=== PATIENT | female | born 1980 | race Two or more races ===

== ENCOUNTER → 2021-03-10 07:19 | Outpatient (CLI) | payer SELFPAY ==
[2021-03-10 07:45] LABS: Chloride 106 mmol/L (98-107); Sodium 139 mmol/L (136-145)
[2021-03-10 07:48] LABS: Alanine Aminotransferase 18 U/L (12-78); Albumin Level 4.1 g/dl (3.5-5.0); Albumin/Globulin Ratio 1.2 (1.1-1.8); Alkaline Phosphatase 73 U/L (38-126); Aspartate Amino Transferase 36 U/L (14-36); Bilirubin,Total 0.6 mg/dl (0.2-1.3); Blood Urea Nitrogen 8 mg/dl (7-17); Calcium 9.1 mg/dl (8.4-10.2); Carbon Dioxide 24 mmol/L (22.0-30.0); Chol/HDL Ratio 3.7 (1-3.5); Cholesterol 212 mg/dl (140-200); Estimated Glomerular Filt Rate 246 ml/min (>60); GFR (African American) 298 ML/MIN (>60); Globulin 3.3 g/dL (1.3-3.2); Glucose 144 mg/dl (74-100); HDL Cholesterol 58 mg/dl (40-60); Total Protein,Serum 7.4 g/dl (6.3-8.2); Triglycerides 214 mg/dl (30-150); VLDL Cholesterol 43 mg/dL (0-40)
[2021-03-10 07:59] LABS: Direct LDL Cholesterol 129.05 mg/dL (100-129); Hemoglobin A1C 6.8 % (4.0-6.0)
== END ==
PROVIDERS: Visit Provider Family Medicine
DX: R73.9 Hyperglycemia, unspecified (principal)
CPT/HCPCS: 36415; 80053; 80061; 83036

== ENCOUNTER → 2022-03-08 07:04 | Outpatient (REF) | payer SELFPAY ==
[2022-03-08 09:50] LABS: Hemoglobin A1C 7.3 % (4.0-6.0)
[2022-03-08 10:38] LABS: Chloride 105 mmol/L (98-107); Sodium 137 mmol/L (136-145)
[2022-03-08 10:39] LABS: Potassium 4.1 mmoL/L (3.5-5.1)
[2022-03-08 10:41] LABS: Alanine Aminotransferase 58 U/L (12-78); Albumin Level 3.9 g/dl (3.5-5.0); Albumin/Globulin Ratio 1.3 (1.1-1.8); Alkaline Phosphatase 107 U/L (38-126); Anion Gap 11.1 mEq/L (5-15); Aspartate Amino Transferase 60 U/L (14-36); Bilirubin,Total 0.3 mg/dl (0.2-1.3); Blood Urea Nitrogen 8 mg/dl (7-17); Carbon Dioxide 25 mmol/L (22.0-30.0); Cholesterol 211 mg/dl (140-200); Estimated Glomerular Filt Rate 245 ml/min (>60); GFR (African American) 297 ML/MIN (>60); Total Protein,Serum 6.9 g/dl (6.3-8.2); Triglycerides 250 mg/dl (30-150); VLDL Cholesterol 50 mg/dL (0-40)
[2022-03-08 10:42] LABS: Chol/HDL Ratio 3.7 (1-3.5); Glucose 152 mg/dl (74-100); HDL Cholesterol 57 mg/dl (40-60)
[2022-03-08 10:53] LABS: Direct LDL Cholesterol 118.03 mg/dL (100-129)
== END ==
LOC: LAB 07:04
PROVIDERS: PCP Family Medicine; Visit Provider Family Medicine
DX: R79.9 Abnormal finding of blood chemistry, unspecified (principal)
CPT/HCPCS: 36415; 80053; 80061; 83036

== ENCOUNTER → 2022-09-06 06:53 | Outpatient (CLI) | payer SELFPAY ==
[2022-09-06 08:48] LABS: Anion Gap 14.3 mEq/L (5-15); Blood Urea Nitrogen 6 mg/dl (7-17); Calcium 8.7 mg/dl (8.4-10.2); Carbon Dioxide 25 mmol/L (22.0-30.0); Chloride 104 mmol/L (98-107); Cholesterol 151 mg/dl (140-200); Estimated Glomerular Filt Rate 244 ml/min (>60); GFR (African American) 295 ML/MIN (>60); Glucose 151 mg/dl (74-100); HDL Cholesterol 50 mg/dl (40-60); Potassium 4.3 mmoL/L (3.5-5.1); Sodium 139 mmol/L (136-145); Triglycerides 197 mg/dl (30-150); VLDL Cholesterol 39 mg/dL (0-40)
[2022-09-06 10:50] LABS: Hemoglobin A1C 8.6 % (4.0-6.0)
== END ==
LOC: LAB 06:54
PROVIDERS: PCP Family Medicine; Visit Provider Family Medicine
DX: R73.09 Other abnormal glucose (principal)
CPT/HCPCS: 36415; 80048; 80061; 83036

== ENCOUNTER 2023-03-14 07:34 | Outpatient (CLI) | payer SELFPAY ==
[2023-03-14 08:23] LABS: Hemoglobin A1C 8.9 % (4.0-6.0)
== END 2023-03-14 21:02 | disposition home or self-care (01) ==
PROVIDERS: PCP Family Medicine; Visit Provider Family Medicine
DX: Z02.9 Encounter for administrative examinations, unspecified (principal)
CPT/HCPCS: 36415; 83036

== ENCOUNTER 2024-07-14 22:02 | Emergency (ER) | payer SELFPAY ==
[2024-07-14 22:07] VITALS: BP 142/73; PULSE 92; RESP 18; TEMP 36.7; O2SAT 100; BMI 36.1
[2024-07-14 22:27] LABS: Microscopic, Urine URINE MICROSCOPIC (MICROSCOPIC)
[2024-07-14 22:41] LABS: Bilirubin,Urine Negative (Negative); Blood, Urine 1+ (Negative); Glucose,Urine (UA) 3+ (Negative); Ketones,Urine 1+ (Negative); Leukocyte Esterase,Urine TRACE (Negative); Nitrate,Urine POSITIVE (Negative); PH,Urine 6.5 (5.0-8.5); Protein,Urine 2+ (Negative); Specific Gravity, Urine 1.015 (1.005-1.030); Urobilinogen,Urine >=8.0 EU/dl (0.2)
[2024-07-14 22:43] LABS: Albumin Level 4.6 g/dl (3.5-5.0); Chloride 101 mmol/L (98-107); Sodium 138 mmol/L (136-145)
[2024-07-14 22:44] LABS: Appearance,Urine Slightly Cloudy (Clear); Color,Urine Orange (Yellow)
[2024-07-14 22:44] LABS: Potassium 3.4 mmoL/L (3.5-5.1)
[2024-07-14 22:45] LABS: Bacteria,Urine 3+ /lpf; RBC,Urine 20-50 #/hpf (0-3); WBC,Urine 50-100 #/hpf (0-3)
[2024-07-14 22:46] LABS: Alanine Aminotransferase 42 U/L (12-78); Alkaline Phosphatase 101 U/L (38-126); Anion Gap 12.4 mEq/L (5-15); Aspartate Amino Transferase 38 U/L (14-36); Bilirubin,Total 0.5 mg/dl (0.2-1.3); Blood Urea Nitrogen 11 mg/dl (7-17); Calcium 10.3 mg/dl (8.4-10.2); Carbon Dioxide 28 mmol/L (22.0-30.0); Creatinine Clearance Estimated 148 mL/min (50-200); Estimated Glomerular Filt Rate 109 ml/min (>60); GFR (African American) 131 ML/MIN (>60); Glucose 141 mg/dl (74-100); Total Protein,Serum 8.8 g/dl (6.3-8.2)
[2024-07-14 22:47] LABS: Albumin/Globulin Ratio 1.1 (1.1-1.8); Globulin 4.2 g/dL (1.3-3.2)
[2024-07-14 22:50] LABS: Basophils # 0.1 K/mm3 (0-0.2); Basophils % 0.4 % (0.1-2.0); Eosinophils # 0.2 K/mm3 (0.0-0.4); Eosinophils % 1.6 % (0.1-12.0); Hematocrit 43.8 % (37.0-47.0); Hemoglobin 14.3 g/dL (12.2-16.2); Lymphocytes # 4.7 K/mm3 (0.7-4.5); Lymphocytes % 38.4 % (10-50); Mean Corpuscular HGB Conc 32.6 g/dL (31.8-35.4); Mean Corpuscular Hemoglobin 29.2 pg (27.0-31.2); Mean Corpuscular Volume 89.6 fl (81-99); Mean Platelet Volume 10.8 fl (7.4-10.4); Monocytes # 0.6 K/mm3 (0.1-1.0); Monocytes % 5.2 % (1.7-9.3); Neutrophils # 6.6 K/mm3 (1.8-7.8); Platelet Count 294 K/mm3 (142-424); Red Blood Count 4.89 M/mm3 (4.20-5.40); Red Cell Distribution Width 14.5 % (11.5-17.5); White Blood Count 12.2 K/mm3 (4.8-10.8)
--- NOTE | 2024-07-14 22:52 | ED_ITS ---
Discharge Plan Disposition Patient Disposition: Home, Self-Care Prescriptions Prescriptions: New cefdinir 300 mg capsule 300 mg PO BID 7 Days Qty: 14 0RF phenazopyridine [Pyridium] 200 mg tablet 200 mg PO TID PRN (Reason: pain) Qty: 10 0RF No Action metformin 500 mg tablet 500 mg PO DAILY Patient Comments: TAKE 1 TABLET BY MOUTH ONCE DAILY norethindrone ac-eth estradiol [Loestrin 04/28 ()] 1-20 mg-mcg tablet 1 tab PO DAILY Qty: 28 11RF metformin 500 mg tablet 1,000 mg PO BID 30 Days Qty: 120 3RF Referrals Follow up/Referrals: Dianne Morrison APRN [Primary Care Provider] - See instructions Activity Restrictions/Add. Instructions Additional Instructions/Restrictions: Call your family doctor to establish care for this visit to the emergency department and schedule follow-up within 48 hours to ensure improvement. If you have any worsening of your condition or any other concerning signs or symptoms, return to the emergency department or your primary care doctor for further evaluation. Clinical Impressions Clinical Impression: Urinary tract infection Instructions Patient Instructions: DI for Urinary Tract Infection (UTI), DI for Urinary Tract Infection in Children Print Language Print Language: Korean Discharge ED Provider: Carlos George General Adult HPI General Chief complaint: Urogenital-Female Stated complaint: ? UTI Time Seen by Provider: 07/14/24 22:19 Mode of Arrival: Ambulatory Source of Information: Patient Description of Symptoms (Recalled from ER Triage Doc. by RN): Pt presents for evaluation of burning with urination and darker color x 1 day. History of Present Illness HPI narrative: Please note that above description of symptoms, in this electronic medical record under categorization of recalled from ER triage doctor by RN are reflective of an initial nursing assessment, however, is not reflective of my full history and physical exam that was personally taken and clarified. Consequentially, this preceding description of symptoms, which may include the patient's categorized chief complaint in the EMR, do not reflect my personal clinical impression, and the ultimate description of history of present illness and patient stated complaints should be deferred to this section of the note. Unless stated otherwise or congruent with this section of the note, additional signs, symptoms, or incongruence should be interpreted as inaccurate with my clinical impression. Related Data Home Medications ?Medication ?Instructions ?Recorded ?Confirmed metformin 500 mg tablet 500 mg PO DAILY 08/15/22 06/04/24 Previous Rx's ?Medication ?Instructions ?Recorded norethindrone acetate 1 mg-ethinyl 1 tab PO DAILY #28 tabs 08/15/22 estradiol 20 mcg tablet (Loestrin) metformin 500 mg tablet 1,000 mg (2 x 500 mg) PO BID 30 04/29/24 days #120 tabs cefdinir 300 mg capsule 300 mg PO BID 7 days #14 caps 07/14/24 phenazopyridine 200 mg tablet 200 mg PO TID PRN pain 6 doses #10 07/14/24 (Pyridium) tabs Allergies Allergy/AdvReac Type Severity Reaction Status Date / Time No Known Allergies Allergy Verified 06/04/24 09:53 [facility] Disclaimer: The information contained in this section may have been updated after the patient was seen, as this information can be updated by other users. Family History Other Diabetes Social History Smoking Status: Never smoker alcohol intake: never current occupational status: other Travel in the last 8 weeks: None Have you lived/traveled outside [place] in past 30 days?: No Contact w/someone who lives/traveled outside [place] past 30 days?: No Exposure to someone with infectious disease in past 14 days?: No Do you have a fever (greater than 100.4 F or 38 C)?: No Have you tested positive for COVID-19: No Exposed to someone with COVID-19 in past 14 days?: No Do you have a sore throat?: No Do you have a cough?: No Do you have any weakness?: No Do you have any diarrhea?: No Are you experiencing any unusual bleeding?: No Do you have any muscle aches/pain?: No Do you have any abdominal pain?: No Are you experiencing loss of taste or smell?: No Other Medical History Have you received the Pneumonia Vaccine: No ROS Obtained: Yes All systems reviewed & no additional complaints except as documented Physical Exam General General appearance: alert Head Head exam: atraumatic and normocephalic Eye Eye exam: Present normal appearance, PERRL and EOMI Neck Neck exam: Present normal inspection, full ROM and trachea midline Respiratory Respiratory exam: Absent respiratory distress, wheezes, stridor, accessory muscle use or prolonged expiratory phase Cardiovascular Cardiovascular exam: Present other (Pulses equal symmetric in upper and lower extremities) Abdominal Exam Abdominal exam: Present soft; Absent distention, tenderness or pulsatile mass Extremities Exam Extremities exam: Absent edema Neurological Exam Neurological exam: Present alert, oriented X3 and CN II-XII intact; Absent motor sensory deficit Skin Skin exam: Present warm and dry; Absent diaphoresis or erythema Medical Decision Making Medical Records Medical records reviewed: Yes I reviewed the patient's medical records. Screening: Per USPSTF and CDC recommendations, given the prevalence of disease in our region, it is our hospital?s policy to screen for HIV and viral Hepatitis for all patients aged 18 and over and those with ongoing risk factors. Kristian Inquiry Pt receiving controlled substance: No Kristian was queried for this patient: No Vital Signs: 07/14/24 22:07 Temperature 98.1 F Temperature Source Oral Pulse Rate [Right] 92 H Respiratory Rate 18 Blood Pressure [Right Arm] 142/73 H Blood Pressure Mean [Right Arm] 96 Blood Pressure Source [Right Arm] Automatic Cuff Blood Pressure Position [Right Arm] Sitting 02 Sat by Pulse Oximetry 100 Oxygen Delivery Method Room Air Lab Data Lab Results 07/14/24 22:16: Urine Color [place], Urine Appearance Slightly cloudy, Urine pH 6.5, Ur Specific [place] 1.015, Urine Protein 2+ A, Urine Glucose (UA) 3+, Urine Ketones 1+, Urine Blood 1+ A, Urine Nitrate Positive A, Urine Bilirubin Negative, Urine Urobilinogen >=8.0, Ur Leukocyte Esterase Trace, Urine RBC 20- 50, Urine WBC 50-100, Ur Squamous Epith Cells 3-5, Urine Bacteria 3+ 07/14/24 22:22: Sodium 138, Potassium 3.4 L, Chloride 101, Carbon Dioxide 28, Anion Gap 12.4, BUN 11, Creatinine 0.60, Estimated Creat Clear 148, Estimated GFR 109, Est GFR ( Amer) 131, Glucose 141 H, Calcium 10.3 H, Total Bilirubin 0.5, AST 38 H, ALT 42, Alkaline Phosphatase 101, Total Protein 8.8 H, Albumin 4.6, Globulin 4.2 H, Albumin/Globulin Ratio 1.1 07/14/24 22:22 Orders (Tests/Meds): ED MEDICATIONS Discontinued Medications Generic Name Dose Route Start Last Admin Trade Name Freq PRN Reason Stop Dose Admin Cefdinir 300 mg 07/14/24 22:48 Cefdinir 300mg Capsule PO 07/14/24 22:49 ONCE ONE Phenazopyridine HCl 200 mg 07/14/24 22:48 Phenazopyridine 200mg Tablet PO 07/14/24 22:49 ONCE ONE ORDERS Category Date Time Status CBC w/Auto Diff [Complete Blood Count Auto Diff] Stat Lab 07/14/24 22:22 Received CMP [Comprehensive Metabolic Panel] Stat Lab 07/14/24 22:22 Completed UA [Urinalysis and Microscopic] Stat Lab 07/14/24 22:16 Completed Urine Culture Stat Micro 07/14/24 22:16 Received Medical Decision Narrative: 44-year-old female history of hypertension, hyperlipidemia, diabetes presenting with urinary tract infection symptoms. States that she has been having dysuria and hematuria for the last couple of days. History obtained primarily with patient and patient's son. Patient states she is having some pain in her back, no fevers or chills or diarrhea or vomiting. Never had a urinary tract infection in the past. On arrival, patient very clinically well. No tenderness elicited on percussion of the flanks or abdominal tenderness with deep palpation. Differential includes urinary tract infection, among others. Urinalysis and basic labs were obtained. Has not an actionable hematologic workup, but does have findings significant for urinary tract infection with blood, protein, nitrates, bacteria on leukocytes. Patient given first dose of Pyridium as well as cefdinir. Questions were answered. Because patient at baseline without signs or symptoms of clinical decompensation, deemed appropriate for discharge. Results were relayed to patient who voiced understanding and were agreeable to outpatient management and follow up. I discussed my clinical impression with patient and answered all questions. At this time, the evidence for any other entities in the differential is insufficient to warrant any further testing or ED observation. This was explained as well. Advisory was given that persistent or worsening symptoms require further evaluation. I confirmed the understanding of this discussion. Pool Servicer disclaimer Much of this encounter note is an electronic financial recording clerk spoken language to printed text. Electronic financial recording clerk of the spoken language may permit errors. Although I have reviewed the note, some errors may still exist. Critical Care Critical Care Time Critical Care Time: No
[2024-07-14] MEDS: PHENAZOPYRIDINE 200MG TABLET 200 MG PO (22:53)
[2024-07-14] MEDS: CEFDINIR 300MG CAPSULE 300 MG PO (22:53)
[2024-07-14 23:14] VITALS: BP 146/78; PULSE 86; RESP 16; TEMP 36.8; O2SAT 99
--- NOTE | 2024-07-17 19:58 | PC.NURSE ---
spoke with patient about urine culture results, informed patient to continue taking the antibiotic that was called itn.
--- NOTE | 2024-07-17 20:00 | PC.NURSE ---
this RN contacted the patient to discuss urine culture result and informed patient to continue taking antibiotic as prescribed.
== END 2024-07-14 23:23 | disposition home or self-care (01) ==
PROVIDERS: Emergency Provider Emergency Medicine; PCP Nurse Practitioner Family
DX: N39.0 Urinary tract infection, site not specified (principal); R30.9 Painful micturition, unspecified; R30.0 Dysuria; R31.9 Hematuria, unspecified; M54.9 Dorsalgia, unspecified; I10 Essential (primary) hypertension; E78.5 Hyperlipidemia, unspecified; E11.9 Type 2 diabetes mellitus without complications
CPT/HCPCS: 80053; 81001; 85025; 87086; 87088; 87186; 99283

== ENCOUNTER 2025-02-28 22:28 | Emergency (ER) | payer SELFPAY ==
--- OUTSIDE RECORDS SUMMARY | 2025-02-20 05:45 | XMS_ITS | Continuity of Care Document ---
Author Organization [facility] Address [address] [place] [address] Phone Care Team Providers Care Horse Racer Name Role Phone Prince MSN, GYROSCOPIC INSTRUMENT TESTER, Dianne Unavailable Unavai lable Allergies, Adverse Reactions, Alerts Substance Reaction Status Criticality No Known Allergies Active No Inform ation Medications Medication Instructions Dosage Effective Dates (start - stop) Status Comments JARDIANCE 25MG TABLET TAKE ONE (1) TABLE T BY ORAL ROUTE EVERY DAY IN THE MORNING - Active ROSUVASTATIN CALCIUM 20MG TABLET TAKE ONE (1) TABLET BY ORAL ROUTE EVERY DAY - Active METFORMIN HYDROCHLORIDE 500MG TABLET TAKE TWO (2) TABLET BY ORAL ROUTE TWO (2) TIMES EVERY DAY WITH MORNING AND EVENING MEALS - Active VALSARTAN 80MG TABLET TAKE ONE (1) TABLE T BY ORAL ROUTE EVERY DAY - Active VITAMIN D [id number] CAPSULE TAKE ONE (1) CAPSULE BY ORAL ROUTE EVERY WEEK FOR 12 WEEKS - Active True Metrix Glucose Test Strip To use to check BS three times daily - Active lancets 33 gauge to use to check bs three times daily - Active Alcohol Prep Pads To use to check BS three times daily - Active True Metrix Glucose Meter To use to check BS tid - Active Procedures Procedure Date IMMUNIZATION ADMIN FLU VACCINE NO PRESERV 3 & > Advance Directives Directive Yes / No Effective Date File Name No Information Encounters Encounter Description Practice Location Reason(s) For Visit Diagnoses Date Provider [facility], [address], [place], [facility], tel:[phone] [facility] [place] Flu Vaccine (chief complaint) No Information 5 Morrison Dianne. [address], [place], [id number] , . tel: [phone] [facility], [address] [place] [address], [facility], tel:[phone] [facility] [place] f/u on labs (chief complaint) Body mass index [BMI] 33.0-33.9, adultEssential (primary) hypertensionHyperlipidem ia, unspecifiedType 2 diabetes mellitus without complications 5 Morrison Dianne. [address], [place], [id number] , . tel: [phone] [place] [address], [address] [place] [address], [facility], tel:[phone] [facility] [place] Fasting Labs (chief complaint) Essential (primary) hypertension 5 Morrison Dianne. [address], [place], [id number] , . tel: [phone] [facility], [address] [place] [address], [facility], tel:[phone] [facility] [place] No Information 5 Morrison Dianne. [address], [place], [id number] , [place]. tel: [phone] [facility], [address] [place] [address], [facility], tel:[phone] [facility] [place] Follow up on lab results (chief complaint) Body mass index [BMI] 32.0-32.9, adultEssential (primary) hypertensionHyperlipidem ia, unspecifiedObesityType 2 diabetes mellitus without complications 5 Morrison Dianne. [address], [place], [id number] , . tel:[phone] [facility], [address] [place] [address], [facility], tel:[phone] [facility] [place] lab collection (chief complaint) Essential (primary) hypertension 5 Morrison Dianne. [address], [place], [id number] , . tel: [phone] [facility], [address] [place] [address], [facility], tel:[phone] [facility] [place] No Information 5 Morrison Dianne. [address], [place], [address] [place] [address] , . tel: [phone] [address], [facility], tel:[phone] [facility] [place] f/u lab results (chief complaint) Body mass index [BMI] 35.0-35.9, adultType 2 diabetes mellitus without complicationsEssential (primary) hypertensionHyperlipidem ia, unspecifiedObesityAbnorm al results of liver function studiesHypercalciuria 5 Morrison Dianne. [address] [place] [address], [id number] , . tel: [phone] [address], [facility], tel:[phone] [facility] [place] Depression screening (chief complaint)P TREMAYNE (chief complaint)n ew to establish (chief complaint) Extreme povertyLess than a high school diplomaUnemployment, unspecifiedInsufficient health insurance coverageEncounter for screening for depressionEncounter for screening for diseases of the blood and blood-forming organs and certain disorders involving the immune mechanismBody mass index [BMI] 35.0-35.9, adultType 2 diabetes mellitus without complicationsGERD disease w/ esophagitis, w/o bleeding Prince Dean. [address] [place], [place], [id number] , . tel: [phone] Family History Family Member Type Diagnosis Age At Onset Son Problem Asthma Son Problem Alive and well Sister Problem Alive and well Maternal grandmother Problem Diabetes mellitus Father Problem Hypertension Brother Problem Diabetes mellitus Paternal grandfather Problem (finding) Sister Problem Alive and well Brother Problem Alive and well Brother Problem ME Sister Problem Alive and well Maternal grandfather Problem (finding) Father Problem Alive and well Daughter Problem 15 days after Maternal grandfather Problem Hypertension Mother Problem Alive and well Father Problem Diabetes mellitus Brother Problem Alive and well Paternal grandmother Problem (finding) Immunizations Vaccine Date Status Comments Influenza virus vaccine, trivalent (IIV3), split virus, preservative free, 0.5 mL dosage, for intramuscular use administered Source: [facility] Immunization Record Influenza virus vaccine, trivalent (IIV3), split virus, preservative free, 0.5 mL dosage, for intramuscular use administered Source: [facility] Immunization Record COVID-19 mRNA (PFR) administered Source: Other Registry COVID-19 mRNA (PFR) administered Source: Other Registry COVID-19 mRNA (PFR) administered Source: Other Registry Tdap, Adsorbed administered Source: Other Registry Payers Payer name Insurance type Covered alliance party ID Authormariona tigab(s) Hc- Covered Under [employer] CI [id number] Hc- Covered Under [employer] CI [id number] Hc- Covered Under [employer] CI [id number] Social History Type Description Quantity Date Captured Comments Alcohol Use Details Unknown Caffeine Use Details Unknown Tobacco Use Status No Information Smoking Status No Information Sex Female Sexual Orientation Straight or heterosexual Jun Gender Identity Female Chief Complaint And Reason For Visit From encounter dated 02/20/2025 10:45'. Flu Vaccine (chief complaint). Description: Pt is here today to receive the flu vaccine afluria, 0.5 mL, Lot# [id number], Exp: 10.06.25. Administered into left deltoid, pt tolerated well, band aid applied. No reaction noted. Plan Of Treatment Date Type Action Status Goal Unhealthy drug use screening due Goal Hepatitis C Screening due Goal Generalized Anxi ety Disorder - 7 (ARABELLA-7). Due on due Goal Follow up Plan f or abnormal BMI (Less than 18.5, greater than 25). Due on due Goal PAP. Due on due Goal Tobacco screening. Due on due Goal CBC. Due on due Goal HIV screen due Goal Vitamin D. Due on due Goal Obtain Height, Weight, and B ME. Due on due Goal HPV. Due on due Goal Drug Abuse Scree ty Test (DAST-10). Due on due Goal HPV testing. Due on due Goal Diabetes screening. Due on due Goal CMP. Due on due Goal Influenza vaccine. Due on due Goal Depression screening. Due on due Goal Pneumococcal vaccine. Due on due Goal Obtain blood Pressure. Due o n due Goal Urinalysis. Due on due Goal ECG. Due on due Goal Hematocrit/Hemoglobin. Due o n due Goal Hemoglobin (Pree jimena/HR 9 months). Due on due Goal Lipid 9-11 y due Goal Lipid 17-20 y due Goal Dilated eye exam. Due on Jan due Goal GFR. Due on due Goal ASCVD 10 year risk. Due on O due Goal Hep B (). Due on due Goal Lipid panel. Due on due Goal Hemoglobin A1C. Due on due Goal Urine microalbumin. Due on due Goal Taking Statin Medication. Du e on due Goal Foot exam. Due on due Goal Dental exam. Due on due Goal TSH. Due on due Goal Pap/HPV testing. Due on due Goal Vitamin B12. Due on due Goal Tobacco Use Screening. Due o n due Goal Lifestyle education regardin g diet completed Goal Urine microalbumin. Due on due Goal Hemoglobin A1C. Due on due Goal Pneumococcal vaccine. Due on due Goal Hep B (). Due on due Goal Taking Statin Medication. Du e on due Goal GFR. Due on due Goal ASCVD 10 year risk. Due on due Goal Dilated eye exam. Due on Dec due Goal Depression screening. Due on due Goal Foot exam. Due on due Goal Obtain blood Pressure. Due o n due Goal Lipid panel. Due on due Goal Dental exam. Due on due Goal Diabetes screening. Due on due Goal Tobacco screening. Due on due Goal Vitamin B12. Due on due Goal TSH. Due on due Goal Obtain Height, Weight, and B ME. Due on due Goal HPV. Due on due Goal Generalized Anxi ety Disorder - 7 (ARABELLA-7). Due on due Goal PAP. Due on due Goal Tobacco Use Screening. Due o n due Goal Follow up Plan f or abnormal BMI (Less than 18.5, greater than 25). Due on due Goal Pap/HPV testing. Due on due Goal HPV testing. Due on due Goal Drug Abuse Scree ty Test (DAST-10). Due on due Goal Hepatitis C Screening due Goal Vitamin D. Due on due Goal CMP. Due on due Goal CBC. Due on due Goal HIV screen due Goal Unhealthy drug use screening due Goal Influenza vaccine. Due on due Goal ECG. Due on due Goal Urinalysis. Due on due Goal Hematocrit/Hemoglobin. Due o n due Goal Hemoglobin (Pree jimena/HR 9 months). Due on due Goal Lipid panel. Due on 026 due Goal Hemoglobin A1C. Due on due Goal Dilated eye exam. Due on Oct due Goal Hep B (). Due on due Goal Foot exam. Due on due Goal Dental exam. Due on due Goal GFR. Due on due Goal Urine microalbumin. Due on due Goal Taking Statin Medication. Du e on due Goal ASCVD 10 year risk. Due on due Goal PAP. Due on due Goal Tobacco Use Screening. Due o n due Goal Pap/HPV testing. Due on due Goal TSH. Due on due Goal Vitamin D. Due on due Goal Diabetes screening. Due on due Goal Tobacco screening. Due on due Goal Generalized Anxi ety Disorder - 7 (ARABELLA-7). Due on due Goal Hepatitis C Screening due Goal Drug Abuse Scree ty Test (DAST-10). Due on due Goal Unhealthy drug use screening due Goal HIV screen due Goal CBC. Due on due Goal Obtain Height, Weight, and B ME. Due on due Goal Vitamin B12. Due on due Goal Follow up Plan f or abnormal BMI (Less than 18.5, greater than 25). Due on due Goal HPV testing. Due on due Goal HPV. Due on due Goal CMP. Due on due Goal Pneumococcal vaccine. Due on due Goal Influenza vaccine. Due on due Goal Depression screening. Due on due Goal Obtain blood Pressure. Due o n due Goal Urinalysis. Due on due Goal ECG. Due on due Goal Lifestyle education regardin g diet completed Goal Hemoglobin A1C. Due on due Goal Lipid panel. Due on due Goal Dental exam. Due on due Goal Hep B (1st). Due on due Goal Taking Statin Medication. Du e on due Goal GFR. Due on due Goal Foot exam. Due on due Goal Dilated eye exam. Due on Sep due Goal Urine microalbumin. Due on due Goal ASCVD 10 year risk. Due on due Goal Unhealthy drug use screening due Goal Obtain Height, Weight, and B ME. Due on due Goal Pap/HPV testing. Due on due Goal HIV screen due Goal Tobacco Use Cess ation Counseling. Due on due Goal Diabetes screening. Due on due Goal Vitamin B12. Due on 026 due Goal HPV testing. Due on 029 due Goal Hepatitis C Screening due Goal PAP. Due on due Goal CMP. Due on due Goal CBC. Due on due Goal Tobacco Use Screening. Due o n due Goal Generalized Anxi ety Disorder - 7 (ARABELLA-7). Due on due Goal HPV. Due on due Goal TSH. Due on due Goal Follow up Plan f or abnormal BMI (Less than 18.5, greater than 25). Due on due Goal Drug Abuse Scree ty Test (DAST-10). Due on due Goal Tobacco screening. Due on due Goal Vitamin D. Due on due Goal Depression screening. Due on due Goal Pneumococcal vaccine. Due on due Goal Influenza vaccine. Due on due Goal ECG. Due on due Goal Urinalysis. Due on 25 due Goal Obtain blood Pressure. Due o n due Goal Tobacco screening. Due on due Goal HPV testing. Due on 029 due Goal HIV screen due Goal TSH. Due on due Goal Vitamin B12. Due on 026 due Goal CMP. Due on due Goal Obtain Height, Weight, and B ME. Due on due Goal Pap/HPV testing. Due on due Goal PAP. Due on due Goal CBC. Due on due Goal Vitamin D. Due on due Goal Tobacco Use Screening. Due o n due Goal Hepatitis C Screening due Goal Generalized Anxi ety Disorder - 7 (ARABELLA-7). Due on due Goal HPV. Due on due Goal Drug Abuse Scree ty Test (DAST-10). Due on due Goal Diabetes screening. Due on due Goal Follow up Plan f or abnormal BMI (Less than 18.5, greater than 25). Due on due Goal Tobacco Use Cess ation Counseling. Due on due Goal Unhealthy drug use screening due Goal Taking Statin Medication. Du e on due Goal Dilated eye exam. Due on Sep due Goal Pneumococcal vaccine. Due on due Goal Hemoglobin A1C. Due on due Goal Depression screening. Due on due Goal Urine microalbumin. Due on due Goal ASCVD 10 year risk. Due on due Goal Lipid panel. Due on due Goal Urinalysis. Due on due Goal GFR. Due on due Goal Foot exam. Due on due Goal Dental exam. Due on due Goal Hep B (). Due on due Goal Influenza vaccine. Due on due Goal ECG. Due on due Goal Obtain blood Pressure. Due o n due Goal ASCVD 10 year risk. Due on due Goal Urine microalbumin. Due on due Goal GFR. Due on due Goal Dilated eye exam. Due on Jun due Goal Dental exam. Due on due Goal Lipid panel. Due on due Goal Unhealthy drug use screening due Goal HPV. Due on due Goal Tobacco Use Cess ation Counseling. Due on due Goal Drug Abuse Scree ty Test (DAST-10). Due on due Goal Tobacco Use Screening. Due o n due Goal Obtain Height, Weight, and B ME. Due on due Goal Hepatitis C Screening due Goal HIV screen due Goal CBC. Due on due Goal PAP. Due on due Goal Tobacco screening. Due on due Goal CMP. Due on due Goal Vitamin B12. Due on 026 due Goal HPV testing. Due on 029 due Goal Generalized Anxi ety Disorder - 7 (ARABELLA-7). Due on due Goal TSH. Due on due Goal Vitamin D. Due on due Goal Pap/HPV testing. Due on due Goal Hemoglobin A1C. Due on due Goal Taking Statin Medication. Du e on due Goal Hep B (). Due on due Goal Follow up Plan f or abnormal BMI (Less than 18.5, greater than 25). Due on due Goal Diabetes screening. Due on due Goal Pneumococcal vaccine. Due on due Goal Depression screening. Due on due Goal Influenza vaccine. Due on due Goal Foot exam. Due on due Goal Urinalysis. Due on due Goal ECG. Due on due Goal Obtain blood Pressure. Due o n due Goal Lifestyle education regardin g diet completed Goal Tobacco screening. Due on due Goal HIV screen due Goal Drug Abuse Scree ty Test (DAST-10). Due on due Goal PAP. Due on due Goal Pneumococcal vaccine. Due on due Goal HPV. Due on due Goal Obtain Height, Weight, and B ME. Due on due Goal Vitamin D. Due on due Goal Lipid panel. Due on due Goal Unhealthy drug use screening due Goal Tobacco Use Screening. Due o n due Goal Vitamin B12. Due on due Goal Diabetes screening. Due on due Goal Generalized Anxi ety Disorder - 7 (ARABELLA-7). Due on due Goal CMP. Due on due Goal CBC. Due on due Goal Follow up Plan f or abnormal BMI (Less than 18.5, greater than 25). Due on due Goal HPV testing. Due on due Goal TSH. Due on due Goal Hepatitis C Screening due Goal Pap/HPV testing. Due on due Goal Influenza vaccine. Due on due Goal Depression screening. Due on due Goal ASCVD 10 year risk. Due on due Goal Foot exam. Due on due Goal Taking Statin Medication. Du e on due Goal Urine microalbumin. Due on M due Goal Hemoglobin A1C. Due on due Goal Dental exam. Due on due Goal GFR. Due on due Goal Hep B (). Due on due Goal Dilated eye exam. Due on Jun due Goal Lifestyle education lon g diet completed Appointment Mini Sahu-fasting L abs BOOKED History Of Present Illness Encounter Date Complaint History Of Prese nt Illness Flu Vaccine Pt is here today to receive the flu vaccine afluria, 0.5 mL, Lot# [id number], Exp: 10.06.25. Administered into left deltoid, pt tolerated well, band aid applied. No reaction noted. f/u on labs Mini is here today for f/u on recent labs:A1c improved- 7.9compliant with medication.DM eye exam 10/22/24DM foot exam 06.27.24Micro 10.02.24HLD:LDL 36Trigs 129at goal- continue rosuvastatinall other labs wnloverall improvedno complaints Fasting Labs Pt is here today to have fasting labs collected. 1x attempt in right ac with butterfly needle. Successfully collected 3 tubes, pt tolerated well, gauze and coban applied, pt instructed to remove in 5-10 minutes, pt voiced understanding. Pt is scheduled to rtc in 2 weeks to follow up on lab results. Follow up on lab results Mini is here today to follow up on recent lab results.overall labs improvedDM: a1c 8.2not checking her BScompliant w/ medicationEye appt made for the for dm eye examMicro completed 07/01DM foot exam currentoverall she reports she is feeling much better.HLD: improvedLDL 35, trigs 130B12 and vit d wnlvit d improved 38.9- continue weekly supplement then switch to D3 2000 IU daily (dec)no other complaints at this time lab collection Mini is here today for lab collection.Micro albumin also collected. f/u lab results Marilou is a 44 yo female here today for f/u on recent labs:DM: A1C 11.1, Glucose 177HLD:Total 209, LDL 104, Trigs 283Abnml liver enzymes:AST 119, ALT 88asymptomatic at this time. Will reassess in 3 months. Diet modifications discussed to have healthier lifestyle/diet. Ca 10.7- recheck in 3 months Depression screening The questio ns to the depression screening was asked by Dianne Morrison APRN. I was home health care case manager that enter the answers into the chart-PH, CAL MCCALL was comp leted by Dianne Morrisno APRN, I was the home health care case manager that entered the answers into the chart-PH, new to establish Mini is here today to establish care. She is a 43 to female here today sent from Dr. Bowers (another pcp here in town) to manage her diabetes. It was too expensive to continue care there. she has a hx of Type 2 DM, but otherwise to her report, healthy.She currently is on 500 mg of Metformin bid.She had [facility]- Dr. Burdick's officeNo MammoNo colonoscopyFlu shot given todayCovid booster declinedNon-fasting labs collected todayRTC 1-2 weeks f/u lab results, DM foot exam at that time. Instructions Date Instruction Additional Infor gaston Patient educated on the importance of improved glycemic control. Counseled on diet, exercise and other lifestyle modifications. Monitor blood glucose and keep a log as instructed by checking fasting glucose in the AM and non fasting before bedtime with any additional checks as instructed. Patient instructed to bring glucose log to all scheduled appointments. Instructed on the importance of taking all medications as prescribed. Patient aware of the importance of diabetic eye exams, dental check ups, foot exams and diabetic foot care. Patient verbalized understanding. Related to Type 2 diabetes mellitus without complications Low fat, low cholest filomena diet. Avoid fatty, fried, and greasy foods. Physical activity as tolerated. Counseled on risks of associated comorbidities, such as heart disease and stroke. Encouraged avoidance of tobacco products. Related to Hyperlipidemia, unspecified Patient currently do ing well. BP in goal range. No medication changes. Patient instructed to follow a low salt diet, continuing taking blood pressure medications as prescribed. Keep routine follow up with clinic. Related to Essential (primary) hypertension Giving encouragement to exercise Related to Body mass index [BMI] 33.0-33.9, adult Lifestyle education regarding di et Related to Body mass index [BMI] 33.0-33.9, adult Patient educated on the importance of improved glycemic control. Counseled on diet, exercise and other lifestyle modifications. Monitor blood glucose and keep a log as instructed by checking fasting glucose in the AM and non fasting before bedtime with any additional checks as instructed. Patient instructed to bring glucose log to all scheduled appointments. Instructed on the importance of taking all medications as prescribed. Patient aware of the importance of diabetic eye exams, dental check ups, foot exams and diabetic foot care. Patient verbalized understanding. Related to Type 2 diabetes mellitus without complications Low fat, low cholest filomena diet. Avoid fatty, fried, and greasy foods. Physical activity as tolerated. Counseled on risks of associated comorbidities, such as heart disease and stroke. Encouraged avoidance of tobacco products. Related to Hyperlipidemia, unspecified Dietary Instructions for a healthy weight: BMI should be between the range of 18.5-24.9 for an adult; and Caloric intake should be around 3994-8698 for a female, and 8075-8032 for an adult male. Fiber intake should be about 14 grams for 1000 calories per day. That is about 20-30 grams daily. Good sources of fiber are oatmeal, fortified grains, and green leafy vegetables, apples. You can also use Carbohydrate counting to maintain a healthy weight. One serving is equal to 15 grams (1 piece of bread, small fruit, or 1 cup of milk). Men should have 45-75, Women about 30-65 per meal, and snacks are recommend to be 13-30 grams each. [employer] is a good source for meal planning and dietary education. You may also refer to the [place] [employer] website for further low sodium, health heart diet information. Mediterainian diet would be a suitable diet for your current health conditions. Related to Obesity Patient currently do ing well. BP in goal range. No medication changes. Patient instructed to follow a low salt diet, continuing taking blood pressure medications as prescribed. Keep routine follow up with clinic. Related to Essential (primary) hypertension Giving encouragement to exercise Related to Body mass index [BMI] 32.0-32.9, adult Lifestyle education regarding di et Related to Body mass index [BMI] 32.0-32.9, adult Low fat dietAvoid ty lenol useDo not consume ETOH Related to Abnormal results of liver function studies Dietary Instructions for a healthy weight: BMI should be between the range of 18.5-24.9 for an adult; and Caloric intake should be around 2908-3240 for a female, and 0131-8807 for an adult male. Fiber intake should be about 14 grams for 1000 calories per day. That is about 20-30 grams daily. Good sources of fiber are oatmeal, fortified grains, and green leafy vegetables, apples. You can also use Carbohydrate counting to maintain a healthy weight. One serving is equal to 15 grams (1 piece of bread, small fruit, or 1 cup of milk). Men should have 45-75, Women about 30-65 per meal, and snacks are recommend to be 13-30 grams each. [employer] is a good source for meal planning and dietary education. You may also refer to the [place] [employer] website for further low sodium, health heart diet information. Mediter[place]ian diet would be a suitable diet for your current health conditions. Physical activity as tolerated. Try to engage in some form of moderate physical activity for 30 minutes most days of the week. May modify activity as needed to reduce discomfort. Try to achieve/maintain a healthy body weight to reduce strain on musculoskeletal system. Verbalizes an understanding. Related to Obesity Low fat, low cholest filomena diet. Avoid fatty, fried, and greasy foods. Physical activity as tolerated. Counseled on risks of associated comorbidities, such as heart disease and stroke. Encouraged avoidance of tobacco products. Related to Hyperlipidemia, unspecified Patient instructed o f the importance of taking medications as prescribed, following a low salt diet as well as getting physical activity as tolerated. Patient advised to keep BP log daily checking each morning and before bed. Patient to call the clinic if systolic blood pressure is greater than 150 and/or diastolic blood pressure is staying greater than 90. Related to Essential (primary) hypertension Patient educated on the importance of improved glycemic control. Counseled on diet, exercise and other lifestyle modifications. Monitor blood glucose and keep a log as instructed by checking fasting glucose in the AM and non fasting before bedtime with any additional checks as instructed. Patient instructed to bring glucose log to all scheduled appointments. Instructed on the importance of taking all medications as prescribed. Patient aware of the importance of diabetic eye exams, dental check ups, foot exams and diabetic foot care. Patient verbalized understanding. Related to Type 2 diabetes mellitus without complications Giving encouragement to exercise Related to Body mass index [BMI] 35.0-35.9, adult Lifestyle education regarding di et Related to Body mass index [BMI] 35.0-35.9, adult Counseled patients o n medications for reflux. Discussed lifestyle modifications including but not limited to elevating the head of the bed, limiting fatty, greasy, spicy food intake. Avoid heavy meals and caffeine intake within 2 hours of bedtime. If applicable, reduce/discontinue tobacco use and/or alcohol use, as both can make reflux symptoms worse. Related to GERD disease w/ esophagitis, w/o bleeding Patient educated on the importance of improved glycemic control. Counseled on diet, exercise and other lifestyle modifications. Monitor blood glucose and keep a log as instructed by checking fasting glucose in the AM and non fasting before bedtime with any additional checks as instructed. Patient instructed to bring glucose log to all scheduled appointments. Instructed on the importance of taking all medications as prescribed. Patient aware of the importance of diabetic eye exams, dental check ups, foot exams and diabetic foot care. Patient verbalized understanding. Related to Type 2 diabetes mellitus without complications Giving encouragement to exercise Related to Body mass index [BMI] 35.0-35.9, adult Lifestyle education regarding di et Related to Body mass index [BMI] 35.0-35.9, adult Assessments Type Assessment Date No Information
[2025-02-28 22:52] VITALS: BP 155/88; PULSE 96; RESP 20; TEMP 36.6; O2SAT 99; BMI 29.9
--- NOTE | 2025-02-28 22:53 | ED_ITS ---
Discharge Plan Disposition Patient Disposition: Home, Self-Care Condition: Good Prescriptions Prescriptions: New amoxicillin-pot clavulanate 875-125 mg tablet 1 tab PO Q12H 7 Days Qty: 14 0RF No Action metformin 500 mg tablet 500 mg PO DAILY Patient Comments: TAKE 1 TABLET BY MOUTH ONCE DAILY norethindrone ac-eth estradiol [Loestrin 04/28 (21)] 1-20 mg-mcg tablet 1 tab PO DAILY Qty: 28 11RF metformin 500 mg tablet 1,000 mg PO BID 30 Days Qty: 120 3RF cefdinir 300 mg capsule 300 mg PO BID 7 Days Qty: 14 0RF phenazopyridine [Pyridium] 200 mg tablet 200 mg PO TID PRN (Reason: pain) Qty: 10 0RF Referrals Follow up/Referrals: Dianne Morrison APRN [Primary Care Provider, Medical] - See instructions Activity Restrictions/Add. Instructions Additional Instructions/Restrictions: I want you to take Augmentin twice daily for the next 7 days. You may use viscous lidocaine for pain. You can also use ibuprofen and Tylenol for pain at home. I want you to follow-up with the dentist as we discussed. If you have any new or worsening symptoms including difficulty with swallowing, neck stiffness, severe headaches, or inability to open the jaw please return to the emergency department for further evaluation. Quiero que tomes Augmentin dos veces al d?a olivia los pr?ximos 7 d?as. Puedes usar lidoca?na viscosa para el dolor. Tambi?n puedes usar ibuprofeno y Tylenol para el dolor en casa. Quiero que tengas danisha jaye de seguimiento con el dentista, villa ya comentamos. Si tienes alg?n s?ntoma nuevo o que empeora, villa dificultad para tragar, rigidez de mak, babatunde smiley de marylin o incapacidad para abrir la fide?bula, por favor, regresa a urgencias para danisha evaluaci?n m?s detallada. Clinical Impressions Clinical Impression: Abscess, periapical Print Language Print Language: Syriac Discharge ED Provider: Andrew Samayoa Adult HPI General Chief complaint: Dental/Oral Stated complaint: tooth ache x two days Time Seen by Provider: 02/28/25 22:32 History of Present Illness HPI narrative: This is a 44-year-old female patient, with past medical history of hypertension, hyperlipidemia, and diabetes, who is present to the emergency department today for evaluation of dental pain. Patient states that this dental pain has occurred over the last 3 days. She states that her tooth feels somewhat loose along the posterior mandibular molar on the left. She has not had any evidence of trismus, neck stiffness, or sore throat. However, she states that she is having exquisite dental pain that is interfering with her ability to chew properly. Related Data Home Medications ?Medication ?Instructions ?Recorded ?Confirmed metformin 500 mg tablet 500 mg PO DAILY 08/15/22 Previous Rx's ?Medication ?Instructions ?Recorded norethindrone acetate 1 mg-ethinyl 1 tab PO DAILY #28 tabs 08/15/22 estradiol 20 mcg tablet (Loestrin) metformin 500 mg tablet 1,000 mg (2 x 500 mg) PO BID 30 04/29/24 days #120 tabs cefdinir 300 mg capsule 300 mg PO BID 7 days #14 cap s 07/14/24 phenazopyridine 200 mg tablet 200 mg PO TID PRN pain 6 doses #10 07/14/24 (Pyridium) tabs amoxicillin 875 mg-potassium 1 tab PO Q12H 7 days #14 tabs 02/28/25 clavulanate 125 mg tablet Allergies Allergy/AdvReac Type Severity Reaction Status Date / Time No Known Allergies Allergy Verified 06/04/24 09:53 [facility] Disclaimer: The information contained in this section may have been updated after the patient was seen, as this information can be updated by other users. Family History Other Diabetes Social History Smoking Status: Never smoker alcohol intake: never current occupational status: other Travel in the last 8 weeks?: None Have you lived/traveled outside [place] in past 30 days?: No Contact w/someone who lives/traveled outside [place] past 30 days?: No Exposure to someone with infectious disease in past 14 days?: No Do you have a fever (greater than 100.4 F or 38 C)?: No Have you tested positive for COVID-19?: No Exposed to someone with COVID-19 in past 14 days?: No Do you have a sore throat?: No Do you have a cough?: No Do you have any weakness?: No Do you have any diarrhea?: No Are you experiencing any unusual bleeding?: No Do you have any muscle aches/pain?: Yes Do you have any abdominal pain?: No Are you experiencing loss of taste or smell?: No Other Medical History Have you received the Pneumonia Vaccine: No ROS Obtained: Yes Systems reviewed as appropriate & no additional complaints except as documented Physical Exam General General appearance: other (See MDM) Respiratory Respiratory exam: Present other (See MDM) Cardiovascular Cardiovascular exam: Present other (See MDM) Neurological Exam Neurological exam: Present other (See MDM) Medical Decision Making Medical Records Medical records reviewed: Yes I reviewed the patient's medical records. Screening: Per USPSTF and CDC recommendations, given the prevalence of disease in our region, it is our hospital?s policy to screen for HIV and viral Hepatitis for all patients aged 18 and over and those with ongoing risk factors. Kristian Inquiry Pt receiving controlled substance: No Kristian was queried for this patient: No Vital Signs: 02/28/25 22:52 Temperature 97.9 F Temperature Source Oral Pulse Rate [Right] 96 H Respiratory Rate 20 Blood Pressure [Right Arm] 155/88 H Blood Pressure Mean [Right Arm] 110 02 Sat by Pulse Oximetry 99 Oxygen Delivery Method Room Air Orders (Tests/Meds): ED MEDICATIONS Generic Name Dose Route Start Last Admin Trade Name Freq PRN Reason Stop Dose Admin Benzocaine/Butamben/Tetracaine HCl 1 gm 02/28/25 22:52 02/28/25 22:57 Tetracaine/Benzocaine/Butamben 56 Gm Gilbert TP 03/30/25 22:51 1 gm NEEDED PRN Administration Dental pain Discontinued Medications Generic Name Dose Route Start Last Admin Trade Name Freq PRN Reason Stop Dose Admin Amoxicillin/Clavulanate Potassium 1 each 02/28/25 22:38 02/28/25 22:57 Amoxicillin/Clavulanate Potassium 875/125mg Tablet PO 02/28/25 22:39 1 each ONCE ONE Administration Lidocaine HCl 10 ml 02/28/25 22:38 02/28/25 22:56 Lidocaine 1% 10ml Mdv SUBCUT 02/28/25 22:39 10 ml ONCE ONE Administration Lidocaine HCl 15 ml 02/28/25 22:52 02/28/25 22:57 Lidocaine 2% Viscous Tabby 15ml Udc PO 02/28/25 22:53 15 ml ONCE ONE Administration Oxycodone HCl 5 mg 02/28/25 22:38 02/28/25 22:56 Oxycodone 5mg Immediate Release Tablet PO 02/28/25 22:39 5 mg ONCE ONE Administration Medical Decision Narrative: In summary, this is a 44-year-old female patient who is presenting to the emergency department today for evaluation of left-sided dental pain for the last 2 to 3 days. She states that this is interfering with her ability to chew properly secondary to how exquisite the pain is. The patient tells me that she has a follow-up appoint with a dentist this week but the pain has become unbearable. On initial evaluation of the patient they were resting comfortably in no acute distress and nontoxic in appearance. They are hemodynamically stable, saturating well room air, and are neurologically intact. On physical examination the patient has fluctuance along the apex of the most posterior left mandibular molar with induration of the gumline consistent with a periapical abscess. The tooth is mildly subluxed. Surprisingly there is not a large dental alma of this tooth. She has no inflammation around the parotid gland. She has no induration or cellulitis in the submandibular region to suggest Santi's angina. Her oropharynx is unremarkable. I had a long conversation with the patient about our next steps moving forward. I offered to prescribe the patient Augmentin as well as pain control therapy to bridge her to her dentistry appointment. She has asked me to drain this abscess at the bedside today. Therefore we set up suction in the room, and I performed a left-sided periapical tooth block as well as an inferior alveolar nerve block. An 11 blade scalpel was used to make a small linear incision along the apex of the tooth. There was a small amount of purulence that came from this area as well as blood. I have administered Augmentin to the patient here in the emergency department as well as 5 mg of oxycodone. We have also administered viscous lidocaine with Cetacaine to the patient. Will allow her to continue taking this at home. I have instructed her to continue taking Augmentin for the next 7 days and to follow-up with her dentist this week as the subluxed tooth may need to be completely removed. At this time all questions answered and all parties are agreeable with the decision to discharge home Procedures Risk/Benefits of Procedure(s) Were Explained: Yes Nerve Block Nerve Block 1: Time out performed: Yes Local Anesthetic: lidocaine 1% Amount of anesthesia used (mL): 6 Side: Left Intraoral Nerve Block: supraperiosteal and inferior alveolar Procedure Successful: Yes Patient Tolerated Procedure: well Complications: none Abscess I/D Site: oral (Left-sided mandibular periapical abscess) Side (if applicable): left Local Anesthetic: lidocaine 1% Amount of anesthesia used (mL): 6 Technique: incised with #11 blade Irrigation: No Packing used?: none Complications: pain and bleeding Critical Care Critical Care Time Critical Care Time: No
[2025-02-28] MEDS: LIDOCAINE 1% 10ML MDV 10 ML SUBCUT (22:56)
[2025-02-28] MEDS: OXYCODONE 5MG IMMEDIATE RELEASE TABLET 5 MG PO (22:56)
[2025-02-28] MEDS: TETRACAINE/BENZOCAINE/BUTAMBEN 56 GM SPRAY TP (22:57)
[2025-02-28] MEDS: LIDOCAINE 2% VISCOUS SOL 15ML UDC 15 ML PO (22:57)
[2025-02-28] MEDS: AMOXICILLIN/CLAVULANATE POTASSIUM 875/125MG TABLET 1 EACH PO (22:57)
[2025-02-28 23:12] VITALS: BP 155/88; PULSE 96; RESP 20; TEMP 36.8; O2SAT 99
== END 2025-02-28 23:13 | disposition home or self-care (01) ==
PROVIDERS: Emergency Provider Student in an Organized Health Care Education/Training Program; PCP Nurse Practitioner Family
DX: K04.7 Periapical abscess without sinus (principal)
CPT/HCPCS: 99283